=== PATIENT | male | born 1965 | race Caucasian/White ===

== ENCOUNTER 2018-09-23 12:29 | Emergency (ER) | payer OTHER ==
[~2018-09-23] VITALS: Ht 175.3 cm; Wt 93.3 kg
[~2018-09-23 12:29] MED LIST: HYDR-762 PO; HYDR-906 PO; NAPR-985 PO
[2018-09-23 12:44] VITALS: BP 167/87; PULSE 94; RESP 20; Ht 175.3 cm; Wt 93.3 kg
--- NOTE | 2018-09-23 13:56 | ERD ---
ER Documentation Chief Complaint Chief Complaint back pain "thinks pulled muscle"- R lower leg stitches swelling/redness HPI Patient is a 53-year-old male with chronic back pain who presents the ER for concerns of left-sided flank pain x3 days. Patient states 3 days ago he was moving a couch. He states while moving the pouch he felt as if he pulled a muscle. Patient states that night his pain got worse. The following morning when he sneezes pain became significant worse. Patient states he has had broken ribs in the past and his symptoms feel similar. Patient denies any left-sided chest pain, shortness of breath, nausea, vomiting or abdominal pain. Patient states with movement his pain is worse. Patient denies any UTI symptoms. Patient is also here for suture removal. Patient states he cut his right posterior leg 3 weeks ago. Patient went to [facility]. Patient was given Tdap vaccine and antibiotics at this time. Patient states there is 6 sutures placed in 4 remain. Patient is able to ambulate without difficulty. ROS All systems reviewed and are negative except as per history of present illness. Medications Home Meds Active Scripts Naproxen* (Naprosyn*) 500 Mg Tablet, 500 MG PO BID PRN for PAIN AND/OR INFLAMMATION, #20 TAB Prov:WARREN,MEÑO DO 10/29/15 Hydrocodone Bit-Acetaminophen* (Randleman*) 10-325 Mg Tablet, 1 TAB PO Q8 PRN for PAIN, #10 TAB Prov:WARREN,MEÑO DO 10/29/15 Hydrocodone Bit-Acetaminophen (Randleman) 5-325 Mg Tablet, 1 TAB PO Q6H PRN for PAIN for 2 Days, #10 TAB 0 Refills Prov:JAMES ESCALANTE PA-C 10/26/15 Allergies Allergies: Coded Allergies: No Known Allergy (Unverified , 01/18/14) PMhx/Soc History of Surgery: Yes (COLON, rt knee sx x 2) Anesthesia Reaction: No Hx Neurological Disorder: No Hx Respiratory Disorders: No Hx Cardiac Disorders: No Hx Psychiatric Problems: No Hx Miscellaneous Medical Probl: Yes (RENAL STONE) Hx Alcohol Use: Yes (socially) Hx Substance Use: Yes (meth, cocaine, heroine) Hx Tobacco Use: Yes FmHx Family History: No diabetes Physical Exam Vitals Vital Signs Date Temp Pulse Resp B/P (MAP) Pulse Ox O2 O2 Flow FiO2 Time Delivery Rate 09/23/18 98.2 94 20 167/87 99 12:44 (113) Physical Exam GENERAL: Well-developed, well-nourished male. Appears in no acute distress. Speaking in full sentences. HEAD: Normocephalic, atraumatic. EYES: Pupils are equally reactive bilaterally. EOMs grossly intact. No conjunctival erythema. ENT: Moist mucous membranes. No uvula deviation. No kissing tonsils. NECK: Supple. No meningismus. Normal range of motion of the neck. LUNG: Clear to auscultation bilaterally. No rhonchi, wheezing, rales or coarse breath sounds. HEART: Regular rate and rhythm. No murmurs, rubs or gallops ABDOMEN: No scars, ecchymosis or rashes noted. Soft, nontender, and nondistended. Positive bowel sounds in all four quadrants. No rebound tenderness, no guarding. (-) McBurney's point tenderness. Tender to palpation of the left flank region along the lower ribs.. Pain is reproducible. No obvious step-offs or deformities. EXTREMITIES: Equal pulses bilaterally. No peripheral clubbing, cyanosis or edema. No unilateral leg swelling. NEUROLOGIC: Alert and oriented. Moving all four extremities without any difficulty. Normal speech. Steady gait. SKIN: 4 cm healing linear laceration noted to the patient's posterior right leg. Mild surrounding erythema. No active bleeding or discharge. No wound dehiscence. 4 sutures remaining. Results 24 hrs Current Medications Medications Dose Sig/Leandro Start Time Status Last (Trade) Ordered Route PRN Stop Time Admin Dose Reason Admin 1 tab ONCE ONCE 09/23/18 DC 09/23/18 Acetaminophen PO 14:00 14:07 / 09/23/18 14:01 Hydrocodone Bitart (Randleman (5/325)) Procedures/MDM ED COURSE: The patient was stable throughout ED course. I kept the patient and/or family informed of laboratory and diagnostic imaging results throughout the ED course. DIAGNOSTIC IMAGING: Read by radiologist. Radiology Main Line: [phone] DIAGNOSTIC IMAGING REPORT Patient: JG GUTIÉRREZ : 1965 Age: 53 Sex: M MR #: [id number] DOS: 09/23/18 1343 Ordering MD: ZIYAD LOCKETT PA-C Location: [facility] Room/Bed: PROCEDURE: XR Chest. CLINICAL INDICATION: Left rib pain. . TECHNIQUE: Single frontal chest x-ray. COMPARISON: CR CHEST 10/26/2015 FINDINGS: The lungs are clear of acute infiltrates, edema, effusions, or masses.. The cardiomediastinal silhouette is unremarkable. The osseous structures are intact. IMPRESSION: No acute cardiopulmonary disease. RPTAT: GG .Desmond Marks MD, MD Date Time Electronically viewed and signed by .Desmond Marks MD, MD on 09/23/2018 14:34 .L/ CC: ZIYAD LOCKETT PA-C [id number] Patient: JG GUTIÉRREZ : 1965 Age: 53 Sex: M MR #: [id number] DOS: 09/23/18 1343 Ordering MD: ZIYAD LOCKETT PA-C Location: [facility] Room/Bed: PROCEDURE: XR Left rib series. CLINICAL INDICATION: Left rib pain TECHNIQUE: Single AP view of the left rib cage are available for review. The patient refused further radiographs at this time limiting evaluation. COMPARISON: None available FINDINGS: The osseous structures, articular spaces, and surrounding soft tissues of the left rib cage are intact. No acute fracture or dislocation is seen. No radiopaque foreign body is identified. The visualized portions of the underlying lung is clear. IMPRESSION: 1. Unremarkable limited single view left rib cage x-ray series. The patient refused to complete full radiographic left rib series. RPTAT: GG .Desmond Marks MD, MD Date Time Electronically viewed and signed by .Desmond Marks MD, MD on 09/23/2018 14:35 .L/ CC: ZIYAD LOCKETT PA-C [id number] Suture Removal by me: 4 Sutures removed with tweezers and scissors without incident. Wound shows no evidence of infection, foreign body, neurologic injury, vascular injury, open joint or tendon laceration. Patient to follow up PRN. MEDICATIONS GIVEN: Randleman MEDICAL DECISION MAKING: Patient is a 53-year-old male with past medical history of chronic back pain, presents the ER for concerns of left-sided flank pain x1 day. Patient states he feels as if he pulled a muscle while pulling a couch. Patient is also here for suture removal. Vital signs were reviewed. Patient is afebrile. Patient was not hypoxic. Patient was hemodynamically stable. Sutures were removed. 4 sutures removed. X-ray imaging of the chest, left ribs and lumbar spine were ordered. Chest x-ray was unremarkable. Patient did not wish to complete full rib series or lumbar spine series. Expensive patient and her were unable to rule out rib complete rib series. Patient continued to decline further rib series and lumbar studies and stated he wished to go home. Patient eloped without any discharge paperwork. Patient was stable prior to his elopement. At this time, patient's presentation is most consistent with suture removal and L flank pain. Low suspicion for ACS, pericarditis, pneumothorax. Low suspicion for wound infection. Patients blood pressure was elevated (>120/80) but appears stable without evidence of hypertensive emergency, hypertensive urgency or end-organ failure. I had discussion with the patient about the risks of hypertension. I have advised the patient to follow up with his/her primary care physician for outpatient monitoring and treatment for hypertension in 2-3 days. I have instructed the patient to return to the ER for any new or worsening symptoms including chest pain, shortness of breath, headache, blurred vision, confusion, nausea, vomiting or LOC. Departure Diagnosis: Primary Impression: Visit for suture removal Additional Impression: Flank pain Condition: Fair Patient Instructions: Suture Removal, No Complication Additional Instructions: Call your primary care doctor TOMORROW for an appointment during the next 1-2 days.See the doctor sooner or return here if your condition worsens before your appointment time. ZIYAD LOCKETT PA-C September 23, 2018 13:56
[2018-09-23] MEDS ORDERED: HYDROCODONE/APAP (5/325) TAB PO ONE (14:00)
== END 2018-09-23 14:14 | disposition left against medical advice (07) ==
LOC: FTE 12:29
DX: R10.9 Unspecified abdominal pain (principal); Z48.01 Encounter for change or removal of surgical wound dressing; Z87.891 Personal history of nicotine dependence
CPT/HCPCS: 71045; 71100; Z7502; Z7610